=== PATIENT | male | born 1990 | race Two or more races ===

== ENCOUNTER 2017-09-20 16:29 | Emergency (ER) | payer SELFPAY ==
--- NOTE | 2017-09-20 16:54 | EDPHY ---
H & P Time Seen by Provider: 09/20/17 16:39 HPI/ROS: CHIEF COMPLAINT: Right knee pain "my knee gave out" HISTORY OF PRESENT ILLNESS: 27-year-old male with prior history of recurrent right patellar subluxation states that he was walking up a small slow P yesterday and felt possibly his patella sublux and felt his knee give out. No direct trauma to his knee. He notes soft tissue swelling, ecchymosis, pain with range of motion. No direct trauma. No proximal distal pain or injury. No paresthesia. PHYSICAL EXAM (Prior to examination, patient consented to physical exam, hands were washed and my usual and customary physical exam procedures followed) 1) GENERAL: Well-developed, well-nourished, alert and oriented. Appears to be in no acute distress. 2) HEAD: Normocephalic 3) HEENT: Pupils equal, round, reactive to light bilaterally. 4) LUNGS: Breathing comfortably. 5) MUSCULOSKELETAL: Exam of the right knee shows soft tissue swelling, ecchymosis, tenderness to palpation. Normal temperature. Limited range of motion secondary to pain. He is able to extend fully however only has a few degrees of flexion. . Compartments are soft. Proximally distally nontender. 6) SKIN: Intact ecchymosis noted. No signs of cellulitis 7) VASCULAR: DP,PT pulses and cap refill present and brisk distally DIFFERENTIAL DIAGNOSIS: in no particular order including but not limited to fracture, sprain, compartment syndrome, septic arthritis, DVT MEDICAL DECISION MAKING Serial evaluations performed on patient. I discussed the limitations of x-ray in diagnosis of knee pain and injury. At this time I do not think that emergent MRI is currently indicated. However, I have recommended follow-up with Orthopedic surgery and provided this referral information. Informed the patient that outpatient MRI may be indicated. Doubt septic arthritis. Doubt compartment syndrome. Doubt DVT. Patient arrives with his own pre-hospital crutches and knee immobilizer, straight leg. Discussed how to use these. He feels comfortable being discharged. I saw this patient independently based on established practice protocols. Care of patient under supervision of secondary supervising physician Dr Merino Smoking Status: Current some day smoker Constitutional: Initial Vital Signs Temperature (C) 37.0 C 09/20/17 16:32 Heart Rate 87 09/20/17 16:32 Respiratory Rate 17 09/20/17 16:32 Blood Pressure 116/75 09/20/17 16:32 O2 Sat (%) 95 09/20/17 16:32 O2 Delivery Mode Room Air Allergies/Adverse Reactions: No Known Allergies Allergy (Verified 11/24/15 19:26) Home Medications: Medication Instructions Recorded Oxybutynin Chloride Xl 11/24/15 Hydrocodone/APAP 5/325 [[place] 1 tab PO Q6 PRN #7 tab 09/20/17 5/325 (RX)] Ibuprofen [Motrin (*)] 800 mg PO Q6 #15 tab 09/20/17 MDM/Departure - Depart Disposition: Home, Routine, Self-Care Clinical Impression: Right knee sprain Qualifiers: Encounter type: initial encounter Involved ligament of knee: unspecified ligament Qualified Code(s): S83.91XA - Sprain of unspecified site of right knee , initial encounter Condition: Good Instructions: Knee Sprain (ED) Additional Instructions: Return to the ER immediately if you experience discoloration, have worsening pain, numbness, tingling, or any other symptoms that concern you. If you received x-rays in the emergency department today, be advised, that ligamentous , tendon, muscular, and other non-bony injury cannot be fully ruled out. Try to keep your affected extremity elevated above the level of your chest, and keep cold packs on the affected area, for the next 48 hours. Stand Alone Forms: Work Excuse Prescriptions: Hydrocodone/APAP 5/325 [[place] 5/325 (RX)] 1 tab PO Q6 PRN #7 tab PRN Reason: Pain, Severe Ibuprofen [Motrin (*)] 800 mg PO Q6 #15 tab Referrals: Cruz Hi MD [Medical Doctor] - 2-3 days, call for appt.
[2017-09-20 17:10] VITALS: BP 143/97
== END 2017-09-20 17:08 | disposition home or self-care (01) ==
DX: S83.91XA Sprain of unspecified site of right knee, initial encounter (principal); F17.200 Nicotine dependence, unspecified, uncomplicated; W18.40XA Slipping, tripping and stumbling without falling, unspecified, initial encounter; Y99.8 Other external cause status; Y93.01 Activity, walking, marching and hiking

== ENCOUNTER 2018-01-09 01:37 | Emergency (ER) | payer SELFPAY ==
[2018-01-09 01:46] VITALS: BP 120/77
--- NOTE | 2018-01-09 01:48 | EDPHY ---
H & P Stated Complaint: "FLU SX" MUCUS, N/V, SORE THROAT X 4 DAYS Time Seen by Provider: 01/09/18 01:48 HPI/ROS: HPI CHIEF COMPLAINT: Sore Throat, Flu Like Illness. HISTORY OF PRESENT ILLNESS: 27-year-old male, otherwise healthy denies significant medical history, does not take any daily medications presents emergency room this sore throat progressively getting worse over the past 24 hr. Flu-like illness. Chills. Denies any trouble swallowing. Denies change in phonation. No abdominal pain. Past Medical History: No significant medical history Past Surgical History: No significant surgical history Social History: Occasional alcohol use. Family History: Noncontributory ROS REVIEW OF SYSTEMS: 10 Systems were reviewed and negative with the exception of the elements mentioned in the history of present illness. Exam Constitutional nontoxic. No acute distress, triage nursing summary reviewed, vital signs reviewed, awake/alert. Eyes normal conjunctivae and sclera, EOMI, PERRLA. HENT posterior pharynx is erythematous, no significant exudate, tonsillar bed bilaterally is symmetrical 3+, no signs of [employer] RPA, no signs of Yovani's, uvula midline moist mucus membranes, no epistaxis, neck supple/ no meningismus, no raccoon eyes. Respiratory clear to auscultation bilaterally, normal breath sounds, no respiratory distress, no wheezing. Cardiovascular rate normal, regular rhythm, no murmur, no edema, distal pulses normal. Gastrointestinal soft, non-tender, no rebound, no guarding, normal bowel sounds, no distension, no pulsatile mass. Genitourinary no CVA tenderness. Musculoskeletal no midline vertebral tenderness, full range of motion, no calf swelling, no tenderness of extremities, no meningismus, good pulses, neurovascularly intact. Skin pink, warm, & dry, no rash, skin atraumatic. Neurologic awake, alert and oriented x 3, AAOx3, moves all 4 extremities equally, motor intact, sensory intact, CN II-XII intact, normal cerebellar, normal vision, normal speech. Psychiatric normal mood/affect. Heme/Lymph/Immune no lymphadenopathy. Differential Diagnosis: Includes but is not limited to in a particular order viral pharyngitis, strep pharyngitis, mono Medical Decision Making: Plan for this patient rapid strep. However given the prominence of both tonsillar bed, and erythema will place on azithromycin, Decadron, ibuprofen and Mucinex D congestion. Understands drink lots of fluids. Return emergency room if there is worsening pain, swelling, fever. 1st dose of azithromycin and Decadron given in emergency room. Source: Patient - Personal History Current Tetanus Diphtheria and Acellular Pertussis (TDAP): Yes Tetanus Vaccine Date: 2014 - Medical/Surgical History Hx Asthma: No Hx Chronic Respiratory Disease: No Hx Diabetes: No Hx Cardiac Disease: No Hx Renal Disease: No Hx Cirrhosis: No Hx Alcoholism: No Hx HIV/AIDS: No Hx Splenectomy or Spleen Trauma: No Other PMH: depression, anxiety, dislocated R knee cap - Social History Smoking Status: Current some day smoker Constitutional: Initial Vital Signs Temperature (C) 37.0 C 01/09/18 01:42 Heart Rate 99 01/09/18 01:42 Respiratory Rate 18 01/09/18 01:42 Blood Pressure 120/77 01/09/18 01:42 O2 Sat (%) 93 01/09/18 01:42 O2 Delivery Mode Room Air Allergies/Adverse Reactions: No Known Allergies Allergy (Verified 11/24/15 19:26) Home Medications: Medication Instructions Recorded Azithromycin [Zithromax] 250 mg PO DAILY #6 tab 01/09/18 Dexamethasone [Decadron 4 MG (*)] 4 mg PO DAILY #4 tab 01/09/18 Ibuprofen [Motrin (*)] 800 mg PO Q6-8PRN #10 tab 01/09/18 Xanax 01/09/18 guaiFENesin [Guaifenesin ER] 600 mg PO BID #14 tab.er.12h 01/09/18 Departure - Departure Disposition: Home, Routine, Self-Care Clinical Impression: Acute pharyngitis Qualifiers: Pharyngitis/tonsillitis etiology: unspecified etiology Qualified Code(s): J02.9 - Acute pharyngitis, unspecified Condition: Good Instructions: Pharyngitis (ED) Additional Instructions: 1. Drink lots of fluids stay well-hydrated 2. Antibiotics as prescribed. 3. Return if worse. Referrals: NONE *PRIMARY CARE P,. [Primary Care Provider] - As per Instructions [facility],. [Clinic] - As per Instructions Prescriptions: Azithromycin [Zithromax] 250 mg PO DAILY #6 tab Dexamethasone [Decadron 4 MG (*)] 4 mg PO DAILY #4 tab guaiFENesin [Guaifenesin ER] 600 mg PO BID #14 tab.er.12h Ibuprofen [Motrin (*)] 800 mg PO Q6-8PRN #10 tab
[2018-01-09] MEDS ORDERED: AZITHROMYCIN 250 MG TAB PO ONE (01:55)
[2018-01-09] MEDS ORDERED: DEXAMETHASONE 4 MG TAB PO ONE (01:55)
== END 2018-01-09 02:04 | disposition home or self-care (01) ==
DX: J02.9 Acute pharyngitis, unspecified (principal)